=== PATIENT | female | born 1960 | race Caucasian/White ===

== ENCOUNTER 2016-07-28 18:51 | Emergency (ER) | payer OTHER ==
[~2016-07-28] VITALS: Ht 160 cm; Wt 67.0 kg
[~2016-07-28 18:51] MED LIST: CEPH-443 PO; HYDR-3498 PO; NITR-58 PO; TAMS-14 PO
[2016-07-28 19:01] VITALS: Ht 160 cm; Wt 67.0 kg
[2016-07-28] MEDS ORDERED: IBUP-1542 PO (19:38)
[2016-07-28] MEDS ORDERED: PRED50TA PO (19:38)
[2016-07-28] MEDS ORDERED: AMO500 PO (19:38)
--- NOTE | 2016-07-28 19:44 | ERD ---
ER Documentation Chief Complaint Date/Time DATE: 07/28/16 TIME: 19:[address] x9 days +fever HPI 56-year-old female presents here in emergency department for complaints of sore throat, hoarseness of the voice and fever on and off for 9 days. Patient denies any cough or any congestion. Patient denies any stridor. Patient denies any cough. Patient sick contacts. Patient denies any problems with swallowing. ROS All systems reviewed and are negative except as per history of present illness. Medications Home Meds Active Scripts Prednisone* (Prednisone*) 50 Mg Tablet, 50 MG PO DAILY, #3 TAB Prov:KIERAN VELÁZQUEZ CREW TRAINER 07/28/16 Amoxicillin* (Amoxicillin*) 500 Mg Cap, 500 MG PO TID for 10 Days, CAP Prov:KIERAN VELÁZQUEZ CREW TRAINER 07/28/16 Ibuprofen* (Motrin*) 600 Mg Tab, 600 MG PO Q6H Y for PAIN AND OR ELEVATED TEMP, #30 TAB Prov:KIERAN VELÁZQUEZ CREW TRAINER 07/28/16 Hydrocodone Bit-Acetaminophen* ([place]*) 5-325 Mg Tab, 1 TAB PO Q6 Y for PAIN, # 10 TAB Prov:ALAN ROJAS PA-C 11/02/15 Nitrofurantoin Monohyd Macrocr* (Macrobid*) 100 Mg Capsr, 100 MG PO BID for 7 Days, CAP Prov:ALAN ROJAS PA-C 11/02/15 Cephalexin* (Keflex*) 500 Mg Capsule, 500 MG PO QID for 5 Days, CAP Prov:ROSSI LARRY 10/22/15 Tamsulosin Hcl* (Flomax*) 0.4 Mg Cap.er.24h, 0.4 MG PO BID, #10 CAP Prov:ROSSI LARRY 10/22/15 Hydrocodone Bit-Acetaminophen* ([place]*) 5-325 Mg Tab, 1 TAB PO Q6 Y for PAIN, # 20 TAB Prov:ROSSI LARRY 10/22/15 Allergies Allergies: Coded Allergies: No Known Allergy (Unverified , 07/28/16) PMhx/Soc History of Surgery: Yes (C SECTIONS X3, RT KIDNEY REMOVAL DUE TO [place]) Anesthesia Reaction: No Hx Neurological Disorder: No Hx Respiratory Disorders: No Hx Cardiac Disorders: No Hx Psychiatric Problems: No Hx Miscellaneous Medical Probl: Yes (KIDNEY [place], LIVER CYST ) Hx Alcohol Use: No Hx Substance Use: No Hx Tobacco Use: No FmHx Family History: No coronary disease, No diabetes, No other Physical Exam Vitals Vital Signs Date Time Temp Pulse Resp B/P Pulse Ox O2 Delivery O2 Flow Rate FiO2 07/28/16 19:01 98.0 88 18 109/80 99 Physical Exam GENERAL: The patient is well developed and appropriate for usual state of health, in no apparent distress. HEENT: Atraumatic. Ears: Normal tympanic membrane, no erythema or bulging. No ear canal swelling. No ear discharge. Nose: normal nasal turbinates, no erythema or swelling. Normal nasal discharge. Throat: oropharynx erythematous, no tonsillar swelling or exudates noted, noted hoarseness of the voice. No lymphadenopathy. CHEST: Clear to auscultation bilaterally. There are no rales, wheezes or rhonchi. HEART: Regular rate and rhythm. No murmurs, clicks, rubs or gallops. No S3 or S4. ABDOMEN: Soft, nontender and nondistended. Good bowel sounds. No rebound or guarding. No gross peritonitis. No gross organomegaly or masses. No Allen sign or McBurney point tenderness. BACK: No midline or flank tenderness. EXTREMITIES: Equal pulses bilaterally. There is no peripheral clubbing, cyanosis or edema. No focal swelling or erythema. Full range of motion. Grossly neurovascularly intact. NEURO: Alert and oriented. Cranial nerves 2-12 intact. Motor strength in all 4 extremities with 5/5 strength. Sensation grossly intact. Normal speech and gait. SKIN: There is no apparent rash or petechia. The skin is warm and dry. HEMATOLOGIC AND LYMPHATIC: There is no evidence of excessive bruising or lymphedema. No gross cervical, axillary, or inguinal lymphadenopathy. Procedures/MDM Medical decision making: Patient symptoms is likely consistent with pharyngitis , most likely bacterial, no cough, no runny nose or congestion noted. Patient has been having on and off fever. No symptoms of stridor, no shortness of breath , no oral airway obstruction noted at this time. No symptoms of respiratory distress. Patient was given for ibuprofen ( short course 5 days), prednisone, amoxicillin, is advised to follow-up with primary care doctor in 2-3 days for reevaluation of symptoms, see ENT specialist not better, patient is advised to return to emergency department for any worsening symptoms. Departure Diagnosis: Primary Impression: Laryngitis Condition: Stable Patient Instructions: Laryngitis Additional Instructions: take ibuprofen only 5 days, not longer to avoid affecting kidney function, salt water gargles, rest. KIERAN VELÁZQUEZ NP Jul 28, 2016 19:44
== END 2016-07-28 19:41 | disposition home or self-care (01) ==
LOC: E/R 18:51
DX: J04.0 Acute laryngitis (principal); Z85.528 Personal history of other malignant neoplasm of kidney
CPT/HCPCS: 99284

== ENCOUNTER 2016-08-08 22:23 | Emergency (ER) | payer OTHER ==
[~2016-08-08] VITALS: Ht 152.4 cm; Wt 67.0 kg
[~2016-08-08 22:23] MED LIST changes: +AMO500 PO; +IBUP-1542 PO; +PRED50TA PO
[2016-08-08 22:28] VITALS: Ht 152.4 cm; Wt 67.0 kg
[2016-08-09] MEDS ORDERED: ONDANSETRON 4 MG INJ IV STA (00:48)
[2016-08-09] MEDS ORDERED: SOD CHLORIDE 0.9% 1,000 ML IV STA (00:48)
[2016-08-09] MEDS ORDERED: HYDROmorphONE 1 MG/ML SYG IV STA (00:48)
[2016-08-09 01:04] LABS: ADD SCAN DIFF NO
[2016-08-09 01:09] LABS: BASOPHILS % 0.1 % (0.0-2.0); EOSINOPHILS # 0.1 10^3/ul (0.0-0.5); EOSINOPHILS % 0.6 % (0.0-7.0); HEMATOCRIT 40.8 % (37.0-47.0); HEMOGLOBIN 13.8 g/dl (12.0-16.0); LYMPHOCYTES # 1.8 10^3/ul (0.8-2.9); LYMPHOCYTES % 20.5 % (15.0-51.0); MEAN CORPUSCULAR HEMOGLOBIN 30.7 pg (29.0-33.0); MEAN CORPUSCULAR HGB CONC 33.8 g/dl (32.0-37.0); MEAN CORPUSCULAR VOLUME 90.9 fl (82.0-101.0); MEAN PLATELET VOLUME 9.7 fl (7.4-10.4); MONOCYTE # 0.7 10^3/ul (0.3-0.9); MONOCYTES % 7.7 % (0.0-11.0); NEUTROPHIL # 6.3 10^3/ul (1.6-7.5); NEUTROPHILS % 70.8 % (39.0-77.0); PLATELET COUNT 218 10^3/UL (140-415); RED BLOOD COUNT 4.49 10^6/ul (4.20-5.40); RED CELL DISTRIBUTION WIDTH 11.6 % (11.5-14.5); WHITE BLOOD COUNT 8.8 10^3/ul (4.8-10.8)
[2016-08-09 01:10] LABS: ADD UMIC YES; URINE BILIRUBIN (Dip) NEGATIVE (NEGATIVE); URINE BLOOD (Dip) 2+ (NEGATIVE); URINE COLOR LT. YELLOW (YELLOW); URINE GLUCOSE (Dip) NEGATIVE (NEGATIVE); URINE KETONES (Dip) NEGATIVE (NEGATIVE); URINE LEUKOCYTE ESTERASE (Dip) NEGATIVE (NEGATIVE); URINE NITRITE (Dip) NEGATIVE (NEGATIVE); URINE TOTAL PROTEIN (Dip) NEGATIVE (NEGATIVE); URINE UROBILINOGEN (Dip) 0.2 E.U./dL (0.1-1.0)
--- NOTE | 2016-08-09 01:26 | RADRPT ---
PROCEDURE: CT ABDOMEN/PELVIS WITHOUT CONTRAST CLINICAL INDICATION: 56-year-old female with abdominal pain. TECHNIQUE: The study was performed utilizing a GE WindPipepeed VCT 64-slice CT scanner. Direct axia l sections were obtained through the abdomen and pelvis without the use of intravenous contrast mate rial. Sagittal and coronal reformations were obtained. One or more of the following dose reduction t echniques were utilized: automated exposure control, adjustment of the mA and/or kV according to pat ient's size or use of iterative reconstruction technique. The images were reviewed on a PACS workst at[facility]. CTD/vol = 8.8 mGy; Total Exam DLP = 497.4 mGy-cm. COMPARISON: CT abdomen/pelvis November 02, 2015. FINDINGS: There is minimal bibasilar subsegmental atelectasis. There is no evidence for significant pleural e ffusion. The liver has a normal size and contour. There is a large bilobed cyst within the left lob e of the liver extending to the periphery and dome of the diaphragm seen best on axial image 3-30 me asuring 3.5 x 4.1 x 6.9 cm without significant interval change. There is a small cyst identified wi thin the lateral segment of the left lobe of the liver extending to the periphery on axial image 3-4 1 measuring 6 x 6 mm. There is a cyst identified within the right lobe of the liver extending to the dome of the diaphragm on axial image 3-17 measuring approximately 12 x 8 x 11 mm. There is a small hypodense focus within the right lobe of the liver measuring approximately 3 x 4 x 4 mm on axial im age 3-26 which appears cystic but not well characterized on the current examination but without sign ificant interval change. No intrahepatic nor extrahepatic biliary ductal dilatation is seen. The gallbladder demonstrates no wall thickening nor pericholecystic fluid. No biliary stones are evident . The pancreas is without areas of abnormal attenuation. The spleen is identified and has a normal size without abnormal density. The adrenal glands are unremarkable. Surgical clips are seen within t he right renal fossa from prior nephrectomy. There is compensatory hypertrophy of the left kidney. There are multiple small punctate nonobstructing renal calculi again identified throughout the left kidney. There is a small left upper pole renal cyst measuring approximately 8 x 9 x 9 mm. There is mild prominence of the left renal collecting system without maty obstructive uropathy. The urinary bladder contains urine. Multiple small diverticula seen within the descending and sigmoid colon wit hout surrounding inflammatory changes. The appendix is not visualized however there is no periappen diceal inflammatory changes. The uterus is unremarkable. There is a left ovarian cyst measuring approximately 2.3 x 2.3 x 2.0 cm. There is no significant pelvic free fluid. The aortoiliac vessel s are without aneurysmal dilatation. Degenerative changes are seen within the lower lumbar spine mos t prominently at L4-5 where there is [id number] central spinal stenosis. IMPRESSION: 1. Multiple hepatic cysts. 2. Status post right nephrectomy. 3. Multiple punctate nonobstructing left renal calculi with mild prominence of the collecting syste m without maty obstructive uropathy. 4. Left upper pole renal cyst. 5. Descending and sigmoid colon diverticulosis. 6. Probable prior appendectomy. 7. Left ovarian cyst. 8. Degenerative changes lower lumbar spine with mild to moderate L4-5 spinal stenosis. .Peter Tam MD, MD Date Time Electronically viewed and signed by .Peter Tam MD, MD on 08/09/2016 01:26 .M/
[2016-08-09 01:31] LABS: ALBUMIN 4.3 g/dl (3.3-4.9); POTASSIUM 3.5 mmol/L (3.5-5.1)
[2016-08-09 01:33] LABS: CREATININE 0.8 mg/dl (0.44-1.00)
[2016-08-09 01:34] LABS: ALBUMIN/GLOBULIN RATIO 1.3; BILIRUBIN,INDIRECT 0.5 mg/dl (0-1.1); BILIRUBIN,TOTAL 0.5 mg/dl (0.2-1.3); CALCIUM 9.7 mg/dl (8.4-10.2); TOTAL PROTEIN 7.6 g/dl (6.1-8.1)
[2016-08-09 01:36] LABS: SQUAMOUS EPITHELIAL CELL,UR FEW
[2016-08-09 01:38] LABS: BACTERIA,URINE OCCASIONAL
[2016-08-09] MEDS ORDERED: METOCLOPRAMIDE 10 MG INJ IV ONE (03:00)
[2016-08-09] MEDS ORDERED: DICLOFENAC SODIUM 37.5 MG/ML VIAL IV STA (03:04)
[2016-08-09] MEDS ORDERED: LIDOCAINE/MYLANTA 40 ML BTL PO ONE (03:30)
[2016-08-09 04:00] VITALS: BP 104/63; PULSE 90; RESP 20; TEMP 97.8
--- NOTE | 2016-08-09 04:05 | ERD ---
ER Documentation Chief Complaint Date/Time DATE: 08/09/16 TIME: 04:02 Chief Complaint abdominal pain x 1 day HPI 56-year-old female came for upper abdominal pain for one day . She 11 episode of copious diarrhea this morning but has not had diarrhea since. She's had no nausea vomiting or ROS All systems reviewed and are negative except as per history of present illness. Medications Home Meds Active Scripts Ranitidine Hcl* (Zantac*) 150 Mg Tablet, 150 MG PO BID Y for EPIGASTRIC PAIN, # 30 TAB Prov:JAYDEN RAI DO 08/09/16 Naproxen* (Naprosyn*) 500 Mg Tablet, 500 MG PO BID Y for PAIN AND/OR INFLAMMATION, #30 TAB Prov:JAYDEN RAI DO 08/09/16 Hydrocodone/Acetaminophen ([place] 5-325 Tablet) 1 Each Tablet, 1 EACH PO Q6, #16 TAB Prov:JAYDEN RAI DO 08/09/16 Prednisone* (Prednisone*) 50 Mg Tablet, 50 MG PO DAILY, #3 TAB Prov:KIERAN VELÁZQUEZ DOG FOOD SHREDDER OPERATOR 07/28/16 Amoxicillin* (Amoxicillin*) 500 Mg Cap, 500 MG PO TID for 10 Days, CAP Prov:KIERAN VELÁZQUEZ DOG FOOD SHREDDER OPERATOR 07/28/16 Ibuprofen* (Motrin*) 600 Mg Tab, 600 MG PO Q6H Y for PAIN AND OR ELEVATED TEMP, #30 TAB Prov:KIERAN VELÁZQUEZ DOG FOOD SHREDDER OPERATOR 07/28/16 Hydrocodone Bit-Acetaminophen* ([place]*) 5-325 Mg Tab, 1 TAB PO Q6 Y for PAIN, # 10 TAB Prov:ALAN ROJAS PA-C 11/02/15 Nitrofurantoin Monohyd Macrocr* (Macrobid*) 100 Mg Capsr, 100 MG PO BID for 7 Days, CAP Prov:ALAN ROJAS PA-C 11/02/15 Cephalexin* (Keflex*) 500 Mg Capsule, 500 MG PO QID for 5 Days, CAP Prov:ROSSI LARRY 10/22/15 Tamsulosin Hcl* (Flomax*) 0.4 Mg Cap.er.24h, 0.4 MG PO BID, #10 CAP Prov:ROSSI LARRY 10/22/15 Hydrocodone Bit-Acetaminophen* ([place]*) 5-325 Mg Tab, 1 TAB PO Q6 Y for PAIN, # 20 TAB Prov:ROSSI LARRY 10/22/15 Allergies Allergies: Coded Allergies: No Known Allergy (Unverified , 08/08/16) PMhx/Soc History of Surgery: Yes (C SECTIONS X3, RT KIDNEY REMOVAL DUE TO [place]) Anesthesia Reaction: No Hx Neurological Disorder: No Hx Respiratory Disorders: No Hx Cardiac Disorders: No Hx Psychiatric Problems: No Hx Miscellaneous Medical Probl: Yes (KIDNEY [place], LIVER CYST ) Hx Alcohol Use: No Hx Substance Use: No Hx Tobacco Use: No Smoking Status: Never smoker Physical Exam Vitals Vital Signs Date Time Temp Pulse Resp B/P Pulse Ox O2 Delivery O2 Flow Rate FiO2 08/09/16 04:00 97.8 90 20 104/63 100 Room Air 08/09/16 00:41 98.2 62 22 117/77 97 Room Air 08/08/16 22:28 98.4 68 20 110/72 97 Physical Exam Const: [] No distress Head: Atraumatic Eyes: Normal Conjunctiva ENT: Normal External Ears, Nose and Mouth. Neck: Full range of motion..~ No meningismus. Resp: Clear to auscultation bilaterally Cardio: Regular rate and rhythm, no murmurs Abd: Soft, mild upper abdominal tenderness in the central portion without guarding or rebound, no lateral tenderness on either side, non distended. Normal bowel sounds Skin: No petechiae or rashes Ext: No cyanosis, or edema Neur: Awake and alert Psych: Normal Mood and Affect Result Diagram: 08/09/165 08/09/16 0035 Results 24 hrs Laboratory Tests Test 08/09/16 00:35 White Blood Count 8.810^3/ul Red Blood Count 4.4910^6/ul Hemoglobin 13.8g/dl Hematocrit 40.8% Mean Corpuscular Volume 90.9fl Mean Corpuscular Hemoglobin 30.7pg Mean Corpuscular Hemoglobin Concent 33.8g/dl Red Cell Distribution Width 11.6% Platelet Count 66798^3/UL Mean Platelet Volume 9.7fl Neutrophils % 70.8% Lymphocytes % 20.5% Monocytes % 7.7% Eosinophils % 0.6% Basophils % 0.1% Nucleated Red Blood Cells % 0.0/100WBC Neutrophils # 6.310^3/ul Lymphocytes # 1.810^3/ul Monocytes # 0.710^3/ul Eosinophils # 0.110^3/ul Basophils # 0.010^3/ul Nucleated Red Blood Cells # 0.010^3/ul Urine Color LT. YELLOW Urine Clarity CLEAR Urine pH 5.5 Urine Specific [place] 1.020 Urine Ketones NEGATIVE Urine Nitrite NEGATIVE Urine Bilirubin NEGATIVE Urine Urobilinogen 0.2 E.U./dL Urine Leukocyte Esterase NEGATIVE Urine Microscopic RBC 5-10/HPF Urine Microscopic WBC 0-2/HPF Urine Squamous Epithelial Cells FEW Urine Bacteria OCCASIONAL Urine Hemoglobin 2+ Urine Glucose NEGATIVE% Urine Total Protein NEGATIVE Sodium Level 145mmol/L Potassium Level 3.5mmol/L Chloride Level 105mmol/L Carbon Dioxide Level 26mmol/L Anion Gap 18 Blood Urea Nitrogen 19mg/dl Creatinine 0.80mg/dl Glucose Level 104mg/dl Calcium Level 9.7mg/dl Total Bilirubin 0.5mg/dl Direct Bilirubin 0.00mg/dl Indirect Bilirubin 0.5mg/dl Aspartate Amino Transf (AST/SGOT) 20IU/L Alanine Aminotransferase (ALT/SGPT) 24IU/L Alkaline Phosphatase 130IU/L Total Protein 7.6g/dl Albumin 4.3g/dl Globulin 3.30g/dl Albumin/Globulin Ratio 1.30 Lipase 810U/L Current Medications Medications (Trade) Dose Ordered Sig/Reilly Route PRN Reason Start Time Stop Time Status Last Admin Dose Admin Sodium Chloride (NS) 1,000 ml @ 1,000 mls/hr Q1H STAT IV 08/09/16 00:48 08/09/16 01:47 DC 08/09/16 00:55 Hydromorphone HCl (Dilaudid) 0.5 mg ONCE STAT IV 08/09/16 00:48 08/09/16 00:50 DC 08/09/16 00:54 Ondansetron HCl (Zofran Inj) 4 mg ONCE STAT IV 08/09/16 00:48 08/09/16 00:50 DC 08/09/16 00:54 Metoclopramide HCl (Reglan) 10 mg ONCE ONCE IV 08/09/16 03:00 08/09/16 03:01 DC Diclofenac Sodium (Dyloject) 37.5 mg ONCE STAT IV 08/09/16 03:04 08/09/16 03:05 DC 08/09/16 03:17 Miscellaneous Medication (Gi Cocktail (2)) 40 ml ONCE ONCE PO 08/09/16 03:30 08/09/16 03:31 DC 08/09/16 03:17 Procedures/MDM Upper abdominal pain is possibly secondary to viral illnesses the patient did have copious diarrhea and one episode this morning. She did not have any nausea or vomiting. Does have elevated alkaline phosphatase and lipase consistent with almost any intra-abdominal process. No signs of cholecystitis or pancreatitis currently. Patient was made much better in the emergency room. She is initially given 0.5 mg of Dilaudid which relieved her pain for a short time. She was then given both a GI cocktail and Dilaudid object after which she said she felt very much better. Vital signs are stable. I'm discharging with a copy of her CT report. She was arty aware that she has kidney stone. Instructed to follow-up to life educator through her primary care doctor for the liver cyst. Discharging with [place], naproxen and Zantac. CT abdomen and pelvis interpretation: I see no acute process. Patient does have multiple hepatic cysts as well as right renal stones. I see no obstruction, no gastritis, no free air, no bony abnormalities. Departure Diagnosis: Primary Impression: Acute abdominal pain Additional Impressions: Diarrhea Hepatic cyst Renal stone Elevated lipase Condition: Stable JAYDEN RAI DO Aug 09, 2016 04:05
[2016-08-09] MEDS ORDERED: NAPR-260 PO (04:26)
[2016-08-09] MEDS ORDERED: RANI150T9 PO (04:26)
[2016-08-09] MEDS ORDERED: HYDR-906 PO (04:26)
== END 2016-08-09 04:38 | disposition home or self-care (01) ==
LOC: E/R 22:23
DX: R10.10 Upper abdominal pain, unspecified (principal); R19.7 Diarrhea, unspecified; K76.89 Other specified diseases of liver; N20.0 Calculus of kidney; R74.8 Abnormal levels of other serum enzymes; Z85.528 Personal history of other malignant neoplasm of kidney
CPT/HCPCS: 36415; 74176; 80053; 81001; 83690; 85025; 96374; 96375; J1170; J2405; J7030; Z7502; Z7610; 81003; J2765

== ENCOUNTER 2016-09-15 19:35 | Emergency (ER) | payer OTHER ==
[~2016-09-15] VITALS: Ht 152.4 cm; Wt 67.0 kg
[~2016-09-15 19:35] MED LIST changes: +HYDR-906 PO; +NAPR-260 PO; +RANI150T9 PO
[2016-09-15 19:46] VITALS: Ht 152.4 cm; Wt 67.0 kg
--- NOTE | 2016-09-15 20:49 | RADRPT ---
PROCEDURE: XR Chest. CLINICAL INDICATION: Cough and fever. TECHNIQUE: Single frontal view of the chest. COMPARISON: 08/23/2014. FINDINGS: The cardiomediastinal silhouette is within normal limits. The lungs are clear. No signs of pleural f luid or pneumothorax are seen. The osseous structures and soft tissues are unremarkable. IMPRESSION: No evidence for active cardiopulmonary disease. RPTAT: [facility] Physician Shanice Date Time Electronically viewed and signed by Zara Matta Physician on 09/15/2016 20:49 RS/
[2016-09-15] MEDS ORDERED: ALBU8.5H3 INH (20:56)
[2016-09-15] MEDS ORDERED: AZIT250T94 PO (20:56)
[2016-09-15] MEDS ORDERED: BENZ100C70 PO (20:56)
--- NOTE | 2016-09-15 21:01 | ERD ---
ER Documentation Chief Complaint Date/Time DATE: 09/15/16 TIME: 20:57 Chief Complaint cough x 2 weeks, cwp and back pain when coughing hx of asthma HPI Patient is a 56-year-old female past medical history of asthma who presents to the emergency department with a cough 2 weeks. Patient states her cough is initially dry in nature however now has become productive with green phlegm production. She denies any fevers or chills. Patient does report mid sternum pain and back pain only when coughing. Patient denies any chest pain at rest. Patient denies any shortness of breath or wheezing. Patient reports trying OTC medication with no relief of symptoms. Patient denies any abdominal pain, diarrhea, ear pain, throat pain, headache, left upper extremity pain, diaphoresis or LOC. No Recent travel. No sick contacts. Patient requesting refill of her inhaler at this time. ROS All systems reviewed and are negative except as per history of present illness. Medications Home Meds Active Scripts Albuterol Sulfate* (Proair HFA*) 8.5 Gm Hfa.aer.ad, 2 PUFF INH Q4, #1 INHALER Prov:CASPER MERINO PA-C 09/15/16 Benzonatate* (Tessalon Perle*) 100 Mg Capsule, 100 MG PO Q8H Y for COUGH, #20 CAP Prov:CASPER MERINO PA-C 09/15/16 Azithromycin* (Zithromax*) 250 Mg Tablet, 250 MG PO .ZPACK DIRECTED, #6 TAB TAKE 500 MG (2 TABS) THE FIRST DAY THEN 250 MG (1 TAB) DAYS 2-5 Prov:CASPER MERINO PA-C 09/15/16 Ranitidine Hcl* (Zantac*) 150 Mg Tablet, 150 MG PO BID Y for EPIGASTRIC PAIN, # 30 TAB Prov:JAYDEN RAI DO 08/09/16 Naproxen* (Naprosyn*) 500 Mg Tablet, 500 MG PO BID Y for PAIN AND/OR INFLAMMATION, #30 TAB Prov:JAYDEN RAI DO 08/09/16 Hydrocodone/Acetaminophen ([place] 5-325 Tablet) 1 Each Tablet, 1 EACH PO Q6, #16 TAB Prov:JAYDEN RAI DO 08/09/16 Prednisone* (Prednisone*) 50 Mg Tablet, 50 MG PO DAILY, #3 TAB Prov:KIERAN VELÁZQUEZ HARDNESS INSPECTOR 07/28/16 Amoxicillin* (Amoxicillin*) 500 Mg Cap, 500 MG PO TID for 10 Days, CAP Prov:KIERAN VELÁZQUEZ HARDNESS INSPECTOR 07/28/16 Ibuprofen* (Motrin*) 600 Mg Tab, 600 MG PO Q6H Y for PAIN AND OR ELEVATED TEMP, #30 TAB Prov:KIERAN VELÁZQUEZ HARDNESS INSPECTOR 07/28/16 Hydrocodone Bit-Acetaminophen* ([place]*) 5-325 Mg Tab, 1 TAB PO Q6 Y for PAIN, # 10 TAB Prov:ALAN ROJAS PA-C 11/02/15 Nitrofurantoin Monohyd Macrocr* (Macrobid*) 100 Mg Capsr, 100 MG PO BID for 7 Days, CAP Prov:ALAN ROJAS PA-C 11/02/15 Cephalexin* (Keflex*) 500 Mg Capsule, 500 MG PO QID for 5 Days, CAP Prov:ROSSI LARRY 10/22/15 Tamsulosin Hcl* (Flomax*) 0.4 Mg Cap.er.24h, 0.4 MG PO BID, #10 CAP Prov:ROSSI LARRY 10/22/15 Hydrocodone Bit-Acetaminophen* ([place]*) 5-325 Mg Tab, 1 TAB PO Q6 Y for PAIN, # 20 TAB Prov:ROSSI LARRY 10/22/15 Allergies Allergies: Coded Allergies: No Known Allergy (Unverified , 08/08/16) PMhx/Soc History of Surgery: Yes (C SECTIONS X3, RT KIDNEY REMOVAL DUE TO [place]) Anesthesia Reaction: No Hx Neurological Disorder: No Hx Respiratory Disorders: No Hx Cardiac Disorders: No Hx Psychiatric Problems: No Hx Miscellaneous Medical Probl: Yes (KIDNEY [place], LIVER CYST ) Hx Alcohol Use: No Hx Substance Use: No Hx Tobacco Use: No Smoking Status: Never smoker Physical Exam Vitals Vital Signs Date Time Temp Pulse Resp B/P Pulse Ox O2 Delivery O2 Flow Rate FiO2 09/15/16 19:46 98.2 74 20 145/77 98 Physical Exam GENERAL: Well-developed, well-nourished female. Appears in no acute distress. Speaking in full sentences. No abdominal retractions, no nasal flaring, no tripoding. HEAD: Normocephalic, atraumatic. No deformities or ecchymosis. EYE: Pupils equal, round, and reactive to light. EOMs intact. No conjunctival erythema. No eye discharge. ENT: External ear without any masses or tenderness. Auditory canals clear bilaterally. TM visualized bilaterally, non-erythematous, non-bulging. Nasal mucosa pink with no discharge. Oropharynx is pink without any tonsillar erythema or exudates. No uvula deviation. No kissing tonsils. NECK: Supple. No meningismus. Normal ROM of the neck. CHEST: Tender to palpation of the sternum. Pain is reproducible. LUNG: Clear to auscultation bilaterally. No rhonchi, wheezing, rales or coarse breath sounds. HEART: Regular rate and rhythm. No murmurs, rubs or gallops. BACK: No midline tenderness. EXTREMITES: Equal pulses bilaterally. No peripheral clubbing, cyanosis or edema. No unilateral leg swelling. NEUROLOGIC: Alert and oriented to person, place and time. Moving all four extremities. 5/5 strength in all extremities. Normal speech. Steady gait. SKIN: Normal color. Warm and dry. No rashes or lesions. Procedures/MDM ED COURSE: The patient was stable throughout ED course. I kept the patient and/or family informed of laboratory and diagnostic imaging results throughout the ED course. EKG: Read by Dr. Rai, attending physician. EKG shows normal sinus rhythm at a rate of 75 bpm. No arrhythmias, acute ST elevations or T wave changes were noted. DIAGNOSTIC IMAGING: Read by radiologist. DIAGNOSTIC IMAGING REPORT Patient: NOHEMI JONES : 1960 Age: 56 Sex: F MR #: [id number] DOS: 09/15/162004 Ordering MD: CASPER MERINO PA-C Location: [facility] Room/Bed: PROCEDURE: XR Chest. CLINICAL INDICATION: Cough and fever. TECHNIQUE: Single frontal view of the chest. COMPARISON: 08/23/2014. FINDINGS: The cardiomediastinal silhouette is within normal limits. The lungs are clear. No signs of pleural fluid or pneumothorax are seen. The osseous structures and soft tissues are unremarkable. IMPRESSION: No evidence for active cardiopulmonary disease. RPTAT: [facility] Physician Shanice Date Time Electronically viewed and signed by Physician Shanice on 09/15/2016 20:49 RS/ CC: CASPER MERINO PA-C MEDICAL DECISION MAKING: This is a 56-year-old female presents with a cough 2 weeks.. Vital signs were reviewed. Patient was afebrile. Patient was not hypoxic. ENT exam was normal. Exam was normal. Chest x-ray was unremarkable. EKG was within normal limits. Given these findings, the patients presentation is most consistent with acute bronchitis. I have a much lower clinical concern for pneumonia, meningitis, sinusitis, otitis externa, acute otitis media, strep pharyngitis, epiglottitis or peritonsillar abscess. Low suspicion for ACS, pericarditis, arrhythmia. Given that patient does have a history of asthma, we will treat the patient with course of antibiotics at this time. PRESCRIPTIONS: Z-Ugo, Tessalon Perles, albuterol inhaler DISCHARGE: At this time, patient is stable for discharge and outpatient management. Supportive therapies such as OTC throat lozenges, salt water gurgles, popsicles and jello discussed. I have instructed the patient to follow-up with his/her primary care physician in 1-2 days. I have instructed the patient to promptly return to the ER for any new or worsening symptoms including increased pain, swelling, fever, nausea, vomiting, weakness or difficulty breathing. The patient and/or family expressed understanding of and agreement with this plan. All questions were answered. Home care instructions were provided. Departure Diagnosis: Primary Impression: Acute bronchitis Bronchitis organism: unspecified organism Qualified Code: J20.9 - Acute bronchitis, unspecified organism Condition: Stable Patient Instructions: What Is Bronchitis? Additional Instructions: Call your primary care doctor TOMORROW for an appointment during the next 1-2 days.See the doctor sooner or return here if your condition worsens before your appointment time. CASPER MERINO PA-C September 15, 2016 21:01
[2016-09-15 21:11] VITALS: BP 138/68; PULSE 80; RESP 20; TEMP 98.7
== END 2016-09-15 21:12 | disposition home or self-care (01) ==
LOC: FTE 19:35
DX: J20.9 Acute bronchitis, unspecified (principal); J45.909 Unspecified asthma, uncomplicated; R07.89 Other chest pain; Z85.528 Personal history of other malignant neoplasm of kidney
CPT/HCPCS: 71010; 93005

== ENCOUNTER 2016-09-24 14:26 | Emergency (ER) | payer OTHER ==
[~2016-09-24] VITALS: Ht 157.5 cm; Wt 78.0 kg
[~2016-09-24 14:26] MED LIST changes: +ALBU8.5H3 INH; +AZIT250T94 PO; +BENZ100C70 PO
[2016-09-24 14:27] VITALS: Ht 157.5 cm; Wt 78.0 kg
[2016-09-24] MEDS ORDERED: OLOP5DRO12 BOTH EYES (14:49)
--- NOTE | 2016-09-24 16:45 | ERA ---
ER Documentation Chief Complaint Date/Time DATE: 09/24/16 TIME: 16:40 Chief Complaint saud eye swelling and itching HPI Patient is a 56-year-old female presenting with a chief complaint of bilateral watery eyes with mild pruritus. Patient states that the symptoms started earlier this morning at the same time. Patient denies eye pain, foreign body sensation, change in vision, photophobia, changes in hearing, fever, congestion , cough, headache or difficulty breathing. Patient has a history of breast cancer. Denies any other symptoms or medical conditions. Is not currently taking any medications. ROS All systems reviewed and are negative except as per history of present illness. Medications Home Meds Active Scripts Olopatadine* (Patanol* Ophth) 0.1% - 5 Ml Drops, 1 DROP BOTH EYES BID, #1 EA Prov:BABATUNDE CHAVEZ PA-C 09/24/16 Albuterol Sulfate* (Proair HFA*) 8.5 Gm Hfa.aer.ad, 2 PUFF INH Q4, #1 INHALER Prov:CASPER MERINO PA-C 09/15/16 Benzonatate* (Tessalon Perle*) 100 Mg Capsule, 100 MG PO Q8H Y for COUGH, #20 CAP Prov:CASPER MERINO PA-C 09/15/16 Azithromycin* (Zithromax*) 250 Mg Tablet, 250 MG PO .JayPACK DIRECTED, #6 TAB TAKE 500 MG (2 TABS) THE FIRST DAY THEN 250 MG (1 TAB) DAYS 2-5 Prov:CASPER MERINO PA-C 09/15/16 Ranitidine Hcl* (Zantac*) 150 Mg Tablet, 150 MG PO BID Y for EPIGASTRIC PAIN, # 30 TAB Prov:JAYDEN RAI DO 08/09/16 Naproxen* (Naprosyn*) 500 Mg Tablet, 500 MG PO BID Y for PAIN AND/OR INFLAMMATION, #30 TAB Prov:JAYDEN RAI DO 08/09/16 Hydrocodone/Acetaminophen (Aydlett 5-325 Tablet) 1 Each Tablet, 1 EACH PO Q6, #16 TAB Prov:JAYDEN RAI DO 08/09/16 Prednisone* (Prednisone*) 50 Mg Tablet, 50 MG PO DAILY, #3 TAB Prov:KIERAN VELÁZQUEZ NP 07/28/16 Amoxicillin* (Amoxicillin*) 500 Mg Cap, 500 MG PO TID for 10 Days, CAP Prov:KIERAN VELÁZQUEZ DIAMOND BROKER 07/28/16 Ibuprofen* (Motrin*) 600 Mg Tab, 600 MG PO Q6H Y for PAIN AND OR ELEVATED TEMP, #30 TAB Prov:KIERAN VELÁZQUEZ DIAMOND BROKER 07/28/16 Hydrocodone Bit-Acetaminophen* (Aydlett*) 5-325 Mg Tab, 1 TAB PO Q6 Y for PAIN, # 10 TAB Prov:ALAN ROJAS PA-C 11/02/15 Nitrofurantoin Monohyd Macrocr* (Macrobid*) 100 Mg Capsr, 100 MG PO BID for 7 Days, CAP Prov:ALAN ROJAS PA-C 11/02/15 Cephalexin* (Keflex*) 500 Mg Capsule, 500 MG PO QID for 5 Days, CAP Prov:ROSSI LARRY 10/22/15 Tamsulosin Hcl* (Flomax*) 0.4 Mg Cap.er.24h, 0.4 MG PO BID, #10 CAP Prov:ROSSI LARRY 10/22/15 Hydrocodone Bit-Acetaminophen* (Aydlett*) 5-325 Mg Tab, 1 TAB PO Q6 Y for PAIN, # 20 TAB Prov:ROSSI LARRY 10/22/15 Allergies Allergies: Coded Allergies: No Known Allergy (Unverified , 08/08/16) PMhx/Soc History of Surgery: Yes (C SECTIONS X3, 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 No sinus tenderness. Eyes: Epiphora bilaterally. Mild scleral injection. Extraocular movements intact bilaterally. Pupils PERRLA. Ophthalmoscope exam unremarkable. Significant light reflection during ophthalmoscope exam secondary to epiphora. ENT: Normal External Ears, Nose and Mouth. Neck: Full range of motion..~ No meningismus. Resp: Clear to auscultation bilaterally Cardio: Regular rate and rhythm, no murmurs Abd: Soft, non tender, non distended. Normal bowel sounds Skin: No petechiae or rashes Back: No midline or flank tenderness Ext: No cyanosis, or edema Neur: Awake and alert Psych: Normal Mood and Affect Procedures/MDM This is a 56-year-old female who is presenting with signs and symptoms consistent with acute allergic conjunctivitis. Patient will be given olopatadine ophthalmic solution for symptomatic relief of mild pruritus. Have instructed the patient to follow-up with primary care provider in the next 1-3 days. Patient's vitals are stable and their current condition is appropriate for discharge. I very little suspicion for endangerment of vision. Patient will be discharged with discharge instructions and return precautions. Departure Diagnosis: Primary Impression: Allergic conjunctivitis Qualified Code: H10.13 - Allergic conjunctivitis, bilateral Condition: Stable Patient Instructions: Conjunctivitis, Allergic Additional Instructions: Follow up with your PCP within the next 1-3 days for a more thorough evaluation and a possible referral to a specialist. Return the the emergency department immediately if symptoms worsen or change. If you have any questions regarding medications, ask your pharmacist or us before you leave. If any adverse reactions occur while taking your medications, discontinue the treatment and return to the emergency department immediately. Take your medications as directed, and complete the entire course of treatment. BABATUNDE CHAVEZ PA-C Sep 24, 2016 16:45
== END 2016-09-24 14:53 | disposition home or self-care (01) ==
LOC: E/R 14:26
DX: H10.13 Acute atopic conjunctivitis, bilateral (principal); Z85.528 Personal history of other malignant neoplasm of kidney
CPT/HCPCS: 99283

== ENCOUNTER 2017-04-25 01:37 | Emergency (ER) | END 2017-04-25 08:40 | disposition home or self-care (01) ==

== ENCOUNTER 2019-01-14 18:17 | Emergency (ER) | payer OTHER ==
[~2019-01-14] VITALS: Ht 157.5 cm; Wt 66.6 kg
[~2019-01-14 18:17] MED LIST changes: +ACET-141 PO; -ALBU8.5H3 INH; +ALBU8.5H8 INH; -AMO500 PO; +AMOX500C2 PO; +AZIT250T PO; -AZIT250T94 PO; +BENZ-6 PO; -BENZ100C70 PO; +HYDR-4011 PO; -HYDR-906 PO; +MECL12.574 PO; -NAPR-260 PO; +NAPR-985 PO; +OLOP5DRO12 BOTH EYES; +RANI-535 PO; -RANI150T9 PO
[2019-01-14 18:23] VITALS: BP 128/53; PULSE 75; RESP 16; Ht 157.5 cm; Wt 66.6 kg
== END 2019-01-14 19:31 | disposition home or self-care (01) ==
LOC: E/R 18:17
DX: S59.901A Unspecified injury of right elbow, initial encounter (principal); W22.8XXA Striking against or struck by other objects, initial encounter; Y92.9 Unspecified place or not applicable; Z85.528 Personal history of other malignant neoplasm of kidney
CPT/HCPCS: 73080; Z7502